=== PATIENT | male | born 1995 | race American Indian/Alaskan Native ===

== ENCOUNTER 2019-02-19 16:06 | Emergency (ER) | payer OTHER ==
--- NOTE | 2019-02-19 16:32 | Emergency Department Report ---
Chief Complaint: Abdominal Pain Stated Complaint: STOMACH PAIN Time Seen by Provider: 02/19/19 16:28 - HPI History of Present Illness: This is a 23 y.o. male that presents to the ER with LLQ pain radiating to left groin x 2 weeks. PMH asthma Current smoker Denies penile discharge, back pain, dysuria, urinary frequency, urgency, nausea, vomiting, or diarrhea. Reports enlarged testicle 2 weeks ago that resolved. Admits to unprotected intercourse. - Exam Vital Signs: Vital Signs 02/19/19 16:25 Temperature 98.5 F Pulse Rate 89 Respiratory 16 Rate Blood Pressure 133/67 [Left] O2 Sat by Pulse 98 Oximetry MSE screening note: Focused history and physical exam performed. Due to findings the following was ordered: Labs ED Disposition for MSE Condition: Stable
[2019-02-19 17:13] LABS: Bilirubin,Urine NEG (Negative); Blood,Urine NEG (Negative); Color,Urine Yellow (Yellow); Mucus,Urine 2+ /HPF; Protein,Urine <15 mg/dL mg/dL (Negative)
[2019-02-19 17:23] LABS: Basophils % (Auto) 0.8 % (0.0-1.8); Eosinophils # (Auto) 0.2 K/mm3 (0.0-0.4); Eosinophils % (Auto) 4.8 % (0.0-4.3); Hemoglobin 15.5 gm/dl (11.8-15.2); Lymphocytes # (Auto) 1.5 K/mm3 (1.2-5.4); Mean Corpuscular HGB Conc 34 % (32-34); Mean Corpuscular Volume 86 fl (84-94); Monocytes # (Auto) 0.4 K/mm3 (0.0-0.8); Monocytes % (Auto) 9.2 % (0.0-7.3); Platelet Count 254 K/mm3 (140-440); Red Blood Count 5.33 M/mm3 (3.65-5.03); Red Cell Distribution Width 13.5 % (13.2-15.2)
[2019-02-19 17:53] LABS: Alanine Aminotransferase 26 units/L (7-56); Albumin 4.6 g/dL (3.9-5); BUN/Creatinine Ratio 16; Blood Urea Nitrogen 14 mg/dL (9-20); Calcium 9.8 mg/dL (8.4-10.2); Hemolysis Index 9
--- NOTE | 2019-02-19 20:32 | Emergency Department Report ---
ED Abdominal Pain HPI - General Chief Complaint: Abdominal Pain Stated Complaint: STOMACH PAIN Time Seen by Provider: 02/19/19 16:28 Source: patient Mode of arrival: Ambulatory Limitations: No Limitations - History of Present Illness Initial Comments: This is a 23 y.o. male that presents to the ER with LLQ pain radiating to left groin x 2 weeks. PMH asthma Current smoker Denies penile discharge, back pain, dysuria, urinary frequency, urgency, nausea, vomiting, or diarrhea. Reports enlarged testicle 2 weeks ago that resolved. Admits to unprotected intercourse. MD Complaint: abdominal pain Onset/Timin -: week(s) Location: LLQ Radiation: suprapubic Severity: moderate Severity scale (0 -10): 4 Quality: aching, sharp Consistency: intermittent Improves With: rest Worsens With: movement, other (lifting ) Associated Symptoms: denies: nausea, vomiting, fever, chills, constipation, dysuria, hematemesis - Related Data Previous Rx's Medication Instructions Recorded Last Taken Type Acetaminophen/Codeine 1 tab PO Q6H PRN #15 tab 10/14/14 Unknown Rx [Acetaminophen-Codeine #3 TAB] Diclofenac Dr [Voltaren Dr] 75 mg PO TID #21 tablet 10/14/14 Unknown Rx methOCARBAMOL [Robaxin] 500 mg PO Q6H PRN #20 tablet 10/14/14 Unknown Rx Albuterol Sulfate [Ventolin HFA] 2 puff IH Q4H PRN #1 hfa.aer.ad 07/03/15 Unknown Rx Loratadine [Claritin] 10 mg PO DAILY #30 tablet 07/03/15 Unknown Rx Albuterol Sulfate [Ventolin HFA] 2 puff IH Q4H PRN #1 hfa.aer.ad 08/13/15 Unknown Rx predniSONE [Deltasone] 20 mg PO QDAY #3 tab 08/13/15 Unknown Rx Azithromycin [Zithromax Z-JUANCHO] 250 mg PO DAILY #6 tablet 02/27/16 Unknown Rx predniSONE [Deltasone] 50 mg PO QDAY #5 tab 02/27/16 Unknown Rx ALBUTEROL Inhaler (OR & NICU) 1 puff IH Q4H #1 inha 06/29/16 Unknown Rx [ProAir HFA Inhaler] Albuterol Sulfate [Albuterol 0.63% 0.63 mg IH TID PRN #1 box 06/29/16 Unknown Rx NEBS] Montelukast [Singulair] 10 mg PO QPM #30 tablet 06/29/16 Unknown Rx Prednisone [predniSONE 10 mg 10 mg PO .TAPER #1 tab.ds.pk 06/29/16 Unknown Rx (6-Day Pack, 21 Tabs)] Doxycycline Monohydrate 100 mg PO BID 10 Days #20 capsule 02/19/19 Unknown Rx [Doxycycline Monohydrate CAP] Ibuprofen [Motrin 800 MG tab] 800 mg PO Q8HR PRN #30 tablet 02/19/19 Unknown Rx Allergies Allergy/AdvReac Type Severity Reaction Status Date / Time No Known Allergies Allergy Verified 02/19/19 16:07 ED Review of Systems ROS: Stated complaint: STOMACH PAIN Other details as noted in HPI Constitutional: denies: chills, fever Eyes: denies: eye pain, eye discharge, vision change ENT: denies: ear pain, throat pain Respiratory: denies: cough, shortness of breath, wheezing Cardiovascular: denies: chest pain, palpitations Endocrine: no symptoms reported Gastrointestinal: as per HPI, abdominal pain Genitourinary: as per HPI, testicular pain. denies: urgency, dysuria, frequency, hematuria, discharge, testicular mass Musculoskeletal: denies: back pain, joint swelling, arthralgia Skin: denies: rash, lesions Neurological: denies: headache, weakness, paresthesias Psychiatric: denies: anxiety, depression Hematological/Lymphatic: denies: easy bleeding, easy bruising ED Past Medical Hx - Past Medical History Hx Asthma: Yes - Surgical History Past Surgical History?: No - Social History Smoking Status: Current Every Day Smoker Substance Use Type: Alcohol - Medications Home Medications: Home Medications Medication Instructions Recorded Confirmed Last Taken Type Acetaminophen/Codeine 1 tab PO Q6H PRN #15 tab 10/14/14 Unknown Rx [Acetaminophen-Codeine #3 TAB] Diclofenac Dr [Voltaren Dr] 75 mg PO TID #21 tablet 10/14/14 Unknown Rx methOCARBAMOL [Robaxin] 500 mg PO Q6H PRN #20 tablet 10/14/14 Unknown Rx Albuterol Sulfate [Ventolin HFA] 2 puff IH Q4H PRN #1 hfa.aer.ad 07/03/15 Unknown Rx Loratadine [Claritin] 10 mg PO DAILY #30 tablet 07/03/15 Unknown Rx Albuterol Sulfate [Ventolin HFA] 2 puff IH Q4H PRN #1 hfa.aer.ad 08/13/15 Unknown Rx predniSONE [Deltasone] 20 mg PO QDAY #3 tab 08/13/15 Unknown Rx Azithromycin [Zithromax Z-JUANCHO] 250 mg PO DAILY #6 tablet 02/27/16 Unknown Rx predniSONE [Deltasone] 50 mg PO QDAY #5 tab 02/27/16 Unknown Rx ALBUTEROL Inhaler (OR & NICU) 1 puff IH Q4H #1 inha 06/29/16 Unknown Rx [ProAir HFA Inhaler] Albuterol Sulfate [Albuterol 0.63% 0.63 mg IH TID PRN #1 box 06/29/16 Unknown Rx NEBS] Montelukast [Singulair] 10 mg PO QPM #30 tablet 06/29/16 Unknown Rx Prednisone [predniSONE 10 mg 10 mg PO .TAPER #1 tab.ds.pk 06/29/16 Unknown Rx (6-Day Pack, 21 Tabs)] Doxycycline Monohydrate 100 mg PO BID 10 Days #20 capsule 02/19/19 Unknown Rx [Doxycycline Monohydrate CAP] Ibuprofen [Motrin 800 MG tab] 800 mg PO Q8HR PRN #30 tablet 02/19/19 Unknown Rx ED Physical Exam - General Limitations: No Limitations General appearance: alert, in no apparent distress - Head Head exam: Present: atraumatic, normocephalic - Eye Eye exam: Present: normal appearance, PERRL, EOMI Pupils: Present: normal accommodation - ENT ENT exam: Present: mucous membranes moist - Neck Neck exam: Present: normal inspection, full ROM - Respiratory Respiratory exam: Present: normal lung sounds bilaterally. Absent: respiratory distress, wheezes, stridor, chest wall tenderness - Cardiovascular Cardiovascular Exam: Present: regular rate, normal rhythm, normal heart sounds. Absent: systolic murmur, diastolic murmur, rubs, gallop - GI/Abdominal GI/Abdominal exam: Present: soft, normal bowel sounds. Absent: distended, tenderness, guarding, rebound, rigid, bruit, hernia - Expanded GI/Abdominal Exam Expanded GI/Abdominal exam: Absent: psoas sign, obturator sign, heel tap sign, Alvarenga's sign, Rovsing's sign, tenderness at [place]bur[place]'s Point, ascites - Rectal Rectal exam: Present: deferred - exam: Present: normal inspection, testicular tenderness (epididymis tenderness ), circumcision. Absent: urethral discharge, scrotal swelling, vertical testicular lie External exam: Present: normal external exam. Absent: erythema, swelling, lesions, lacerations, ecchymosis, bleeding - Extremities Exam Extremities exam: Present: normal inspection, full ROM, normal capillary refill. Absent: tenderness, pedal edema, joint swelling, calf tenderness - Back Exam Back exam: Present: normal inspection, full ROM. Absent: tenderness, CVA tenderness (R), CVA tenderness (L), muscle spasm, paraspinal tenderness, vertebral tenderness, rash noted - Neurological Exam Neurological exam: Present: alert, oriented X3, CN II-XII intact, normal gait - Psychiatric Psychiatric exam: Present: normal affect, normal mood - Skin Skin exam: Present: warm, dry, intact, normal color. Absent: rash ED Course Vital Signs 02/19/19 02/19/19 16:25 19:48 Temperature 98.5 F Pulse Rate 89 Respiratory 16 16 Rate Blood Pressure 133/67 [Left] O2 Sat by Pulse 98 Oximetry ED Medical Decision Making - Lab Data Result diagrams: 02/19/19 17:07 02/19/19 17:07 Labs 02/19/19 02/19/19 02/19/19 17:07 17:07 Unknown WBC 4.4 L RBC 5.33 H Hgb 15.5 H Hct 46.0 H MCV 86 MCH 29 MCHC 34 RDW 13.5 Plt Count 254 Lymph % (Auto) 34.0 [place] % (Auto) 9.2 H Eos % (Auto) 4.8 H Baso % (Auto) 0.8 Lymph # 1.5 [place] # 0.4 Eos # 0.2 Baso # 0.0 Seg Neutrophils % 51.2 Seg Neutrophils # 2.2 Sodium 141 Potassium 4.4 Chloride 102.7 Carbon Dioxide 30 Anion Gap 13 BUN 14 Creatinine 0.9 Estimated GFR > 60 BUN/Creatinine Ratio 16 Glucose 102 H Calcium 9.8 Total Bilirubin 1.10 AST 22 ALT 26 Alkaline Phosphatase 51 Total Protein 7.3 Albumin 4.6 Albumin/Globulin Ratio 1.7 Urine Color Yellow Urine Turbidity Slightly-cloudy Urine pH 6.0 Ur Specific [place] 1.028 Urine Protein <15 mg/dl Urine Glucose (UA) Neg Urine Ketones Tr Urine Blood Neg Urine Nitrite Neg Urine Bilirubin Neg Urine Urobilinogen 2.0 Ur Leukocyte Esterase Neg Urine WBC (Auto) 1.0 Urine RBC (Auto) 1.0 Urine Mucus 2+ - Radiology Data Radiology results: report reviewed, image reviewed PROCEDURE: CT ABDOMEN PELVIS W CON TECHNIQUE: Computerized axial tomography of the abdomen and pelvis was performed after the IV injection of iodinated nonionic contrast. CT DOSE LENGTH PRODUCT: 1249.5 mGycm HISTORY: abd pain hx hernia COMPARISONS: None . FINDINGS: Visualized lower thorax: No significant abnormality. Liver: Normal size and attenuation. Spleen: Normal size and attenuation. Gallbladder and biliary system: Normal. Pancreas: Normal. Adrenals: Normal. Kidneys: Normal. GI tract: There is no bowel obstruction, colitis or enteritis. The appendix is normal. . Lymph nodes and mesentery: Normal. Vasculature: Normal.. Bladder: Normal. Reproductive organs: Normal. Peritoneum: There is no ascites or free air, abscess or adenopathy.. Musculoskeletal structures: No significant abnormality. IMPRESSION: There is no acute intra-abdominal abnormality. There are no hernias. . This document is electronically signed by Fred Palma MD., Feb 19 2019 08:32:54 PM ET Transcribed By: [place] Dictated By: FRED PALMA MD Electronically Authenticated By: FRED PALMA MD Signed Date/Time: 02/19/192033 DD/ 25 TD/TT: 02/19/192025 - Medical Decision Making CT abdomen and pelvis is normal no hernia no bleed no masss, this is likely epididymitis versus orchitis, there is no scrotal swelling thrill or bruit noted on exam. Critical care attestation.: If time is entered above; I have spent that time in minutes in the direct care of this critically ill patient, excluding procedure time. ED Disposition Clinical Impression: Epididymitis Abdominal pain Qualifiers: Abdominal location: generalized Qualified Code(s): R10.84 - Generalized abdominal pain Disposition: DC-01 TO HOME OR SELFCARE Is pt being admited?: No Does the pt Need Aspirin: No Condition: Stable Instructions: Epididymitis (ED), Abdominal Pain (ED) Prescriptions: Doxycycline Monohydrate [Doxycycline Monohydrate CAP] 100 mg PO BID 10 Days #20 capsule Ibuprofen [Motrin 800 MG tab] 800 mg PO Q8HR PRN #30 tablet PRN Reason: pain Referrals: POOL GOMEZ MD [Primary Care Provider] - 3-5 Days Forms: STI Treatment and Prevention Time of Disposition: 20:49
[2019-02-19 22:12] VITALS: BP 113/54
== END 2019-02-19 21:13 | disposition home or self-care (01) ==
LOC: ED 16:06
DX: N45.1 Epididymitis (principal); J45.909 Unspecified asthma, uncomplicated; F17.200 Nicotine dependence, unspecified, uncomplicated
CPT/HCPCS: 36415; 74177; 80053; 81001; 85025; 99284; Q9967